=== PATIENT | male | born 1970 | race Caucasian/White ===

== ENCOUNTER 2017-01-14 18:36 | Emergency (ER) | payer SELFPAY ==
[2017-01-14] MEDS ORDERED: NS 0.9% 1000 ML* 1,000 ML IV ONE (19:53)
[2017-01-14] MEDS ORDERED: Ketorolac INJ* 30 MG/ML 1 ML VIAL IV PUSH ONE (19:54)
[2017-01-14 20:32] LABS: Hematocrit 38 % (42-52); Hemoglobin 13.1 g/dl (14.0-18.0); Mean Corpuscular HGB Conc 34 g/dl (31-36); Mean Corpuscular Hemoglobin 30 pg (27-31); Mean Corpuscular Volume 89 fL (80-94); Mean Platelet Volume 8 um3 (7.4-10.4); Red Blood Count 4.34 10^6/ul (4.0-5.4); Red Cell Distribution Width 14 % (10.5-15); White Blood Count 6.9 10^3/ul (3.5-10.8)
--- NOTE | 2017-01-14 20:40 | ED ---
Indira Mckeon Rebecca, scribed for Pedro Glover MD on 01/14/17 at 1930 . Lower Extremity - HPI Summary HPI Summary: Pt is a 46 y/o M who presents to ED c/o sores and pain on the R foot. Sx have been present for 1 week, worsening last night when the skin started to peel off. Has been packing the sores with Neosporin. Associated pain is currently moderate, ranked 7/10. Sx aggravated by walking and moving the great toe, alleviated by nothing. PMHx IDDM. Pt reports he just moved to the area approximately 1 month ago and has been more stressed than unusual while not being as diligent about checking his BG. Lats BG taken was 289 this morning. Allergies to Bactrim, Tylenol and Penicillin. - History of Current Complaint Chief Complaint: EDExtremityLower Stated Complaint: SORES ON RT FOOT Time Seen by Provider: 01/14/17 19:24 Hx Obtained From: Patient Onset of Pain: Days - 1 week, Prior to Arrival Onset/Duration: Still Present - 1 week Severity Currently: Moderate Pain Intensity: 7 Pain Scale Used: 0-10 Numeric Location: Is Discrete @ - R foot Associated Signs And Symptoms: Positive: Other - Sores Aggravating Factor(s): Ambulation, Other - Moving the R great toe Alleviating Factor(s): Nothing - Allergies/Home Medications Allergies/Adverse Reactions: Allergies Allergy/AdvReac Type Severity Reaction Status Date / Time Acetaminophen Allergy Severe Swelling Verified 01/14/17 18:47 Penicillins [PCN] Allergy Severe Anaphylatic Verified 01/14/17 18:47 Shock Shellfish Allergy Allergy Severe Anaphylatic Verified 01/14/17 18:47 Shock Sulfamethoxazole Allergy Severe Itching Verified 01/14/17 18:47 w/Trimethoprim [From Bactrim] Ketorolac Tromethamine Allergy Itching Verified 01/14/17 20:48 [From Toradol] PMH/Surg Hx/FS Hx/Imm Hx Endocrine/Hematology History: Reports: Hx Diabetes Cardiovascular History: Reports: Hx Hypertension Respiratory History: Reports: Hx Asthma Psychiatric History: Reports: Hx Bipolar Disorder Infectious Disease History: No Infectious Disease History: Denies: Traveled Outside the [place] in Last 30 Days - Family History Known Family History: Positive: Hypertension - Social History Occupation: Employed Full-time Alcohol Use: None Substance Use Type: Reports: None Smoking Status (MU): Current Every Day Smoker Review of Systems Negative: Fever Positive: Arthralgia - R foot pain with sores All Other Systems Reviewed And Are Negative: Yes Physical Exam Triage Information Reviewed: Yes Vital Signs On Initial Exam: Initial Vitals Temp Pulse Resp BP Pulse Ox 97.2 F 84 16 149/72 97 01/14/17 18:41 01/14/17 18:41 01/14/17 18:41 01/14/17 18:41 01/14/17 18:41 Vital Signs Reviewed: Yes Appearance: Positive: Well-Appearing, No Pain Distress Skin: Positive: Warm, Other - rt foot with cracked skin Head/Face: Positive: Normal Head/Face Inspection Eyes: Positive: PEREZ ENT: Positive: Hearing grossly normal Neck: Positive: Supple Respiratory/Lung Sounds: Positive: Breath Sounds Present Cardiovascular: Positive: RRR Abdomen Description: Positive: Nontender, Soft Bowel Sounds: Positive: Present Musculoskeletal: Positive: Strength/ROM Intact Neurological: Positive: Alert, Oriented to Person Place, Time Psychiatric: Positive: Affect/Mood Appropriate Diagnostics - Vital Signs Vital Signs Temp Pulse Resp BP Pulse Ox 01/14/17 18:41 97.2 F 84 16 149/72 97 - Laboratory Result Diagrams: 01/14/17 20:20 01/14/17 20:20 Lab Statement: Any lab studies that have been ordered have been reviewed, and results considered in the medical decision making process. Re-Evaluation - Re-Evaluation First Eval Re-Evaluation Time: 21:49 Change: Improved Comment: Discussed D/C plan with the pt. Lower Extremity Course/Dx - Course Assessment/Plan: Pt is a 46 y/o M who presents to ED c/o sores and pain on the R foot. Sx have been present for 1 week, worsening last night when the skin started to peel off. Has been packing the sores with Neosporin. Associated pain is currently moderate, ranked 7/10. Sx aggravated by walking and moving the great toe, alleviated by nothing. PMHx IDDM. Pt reports he just moved to the area approximately 1 month ago and has been more stressed than unusual while not being as diligent about checking his BG. Lats BG taken was 289 this morning. Allergies to Bactrim, Tylenol and Penicillin. Blood work and UA were done. In the ED course, pt was administered Toradol, Benadryl, Ultram and fluids which improved sx. He will be D/C to home with Dx of Diabetes and diabetic foot pain with a follow up with his PCP. He understands and agrees. Elevated BP noted and advised to f/u with PCP. - Diagnoses Provider Diagnoses: Diabetes, Diabetic foot pain Discharge - Discharge Plan Condition: Stable Disposition: HOME Patient Education Materials: [facility] (ED) Forms: *Work Release Referrals: Non Staff,Doctor [Primary Care Provider] - 3 Days The documentation as recorded by the Indira bashir Rebecca accurately reflects the service I personally performed and the decisions made by me, Pedro Glover MD.
[2017-01-14] MEDS ORDERED: diPHENhydraMINE IV* 50 MG/ML 1 ml VIAL (BENADRYL) IV ONE (20:41)
[2017-01-14 20:47] LABS: Albumin 3.9 g/dL (3.2-5.2); BUN/Creatinine Ratio 25.5 (8-20); Calcium 9.6 mg/dL (8.6-10.3); EGFR African American 67.1 (>60); EGFR Non-African American 52.2 (>60); Globulin 3.1 g/dL (2-4); Magnesium 2.2 mg/dL (1.9-2.7); Potassium 3.7 mmol/L (3.5-5.0); Total Bilirubin 0.4 mg/dL (0.2-1.0)
[2017-01-14] MEDS ORDERED: traMADol TAB* 50 MG PO ONE (21:14)
[2017-01-14 21:35] LABS: Urine Bacteria Absent (Absent); Urine Bilirubin Negative (Negative); Urine Glucose 3+(>=500 mg/dL) (Negative); Urine Nitrite Negative (Negative)
[2017-01-14 21:56] VITALS: BP 136/69
== END 2017-01-14 22:11 | disposition home or self-care (01) ==
LOC: ED 18:36
DX: E11.621 Type 2 diabetes mellitus with foot ulcer (principal); L97.519 Non-pressure chronic ulcer of other part of right foot with unspecified severity; E11.69 Type 2 diabetes mellitus with other specified complication; M79.671 Pain in right foot; Z79.4 Long term (current) use of insulin; I10 Essential (primary) hypertension; F31.9 Bipolar disorder, unspecified; J45.909 Unspecified asthma, uncomplicated; F17.200 Nicotine dependence, unspecified, uncomplicated; Z88.0 Allergy status to penicillin
CPT/HCPCS: 36415; 80053; 81003; 81015; 83605; 83735; 85025; 96360; 96374; 96375; 99283; A9270-GY; J1200; J1885

== ENCOUNTER 2017-09-30 16:48 | Emergency (ER) | payer OTHER ==
[2017-09-30] MEDS ORDERED: Ondansetron INJ* 2 MG/ML VIAL IV ONE (17:58)
[2017-09-30] MEDS ORDERED: NS 0.9% 1000 ML* 1,000 ML IV ONE (17:58)
[2017-09-30 18:05] LABS: ABS Basophils 0.1 10^3/ul (0-0.2); ABS Eosinophils 0.6 10^3/ul (0-0.6); ABS Lymphocytes 2.4 10^3/ul (1.0-4.8); ABS Monocytes 0.4 10^3/ul (0-0.8); ABS Neutrophils 5.8 10^3/ul (1.5-7.7); ABS Nucleated RBC 0 10^3/ul; Eosinophil % 6.8 % (0-6); Hematocrit 37 % (42-52); Hemoglobin 12.7 g/dl (14.0-18.0); Lymphocyte % 25.4 % (25-47); Mean Corpuscular HGB Conc 35 g/dl (31-36); Mean Corpuscular Hemoglobin 30 pg (27-31); Mean Corpuscular Volume 87 fL (80-94); Mean Platelet Volume 8.2 um3 (7.4-10.4); Nucleated Red Blood Cells % 0.1; Platelet Count 218 10^3/ul (150-450); Red Blood Count 4.22 10^6/ul (4.0-5.4); Red Cell Distribution Width 14 % (10.5-15); White Blood Count 9.3 10^3/ul (3.5-10.8)
[2017-09-30 18:09] LABS: Urine Appearance Clear; Urine Blood Negative (Negative); Urine Color Yellow; Urine Ketones Negative (Negative); Urine Protein 1+(30 mg/dL) (Negative); Urine Specific Gravity 1.014 (1.010-1.030); Urine Urobilinogen Negative (Negative)
--- NOTE | 2017-09-30 18:09 | ED ---
Nausea/Vomiting/Diarrhea HPI - HPI Summary HPI Summary: C/O NAUSEA AND VOMITING 2-3X/DAY SINCE 09/15/17, ELEVATED BGL (AROUND 400'S) X 1 WEEK, AND UMBILICAL PROTRUSION S/P MECHANICAL FALL 3 DAYS AGO. PT IS COMPLIANT WITH DM MEDS, LANTUS BID, HUMALOG SLIDING SCALE. PRIOR TO FALL DENIES SX OF FEVER, COUGH, SORE THROAT, CP, SOB, ABDOMINAL PAIN, CHNAGE IN URINE OR BM. POST FALL, C/O MILD DISCOMFORT AT SITE OF UMBILICAL PROTRUSION, WHICH PT HAS BEEN REDUCING WITH HIS FINGER. STATES PROTRUSION REOCCURS WITH COUGHING, BM. SNEEZING. PT SLIPPED CARRYING LAUNDRY DOWN THE STAIRS, LANDING ON TAILBONE, DENIES INCREASE IN CHRONIC LOW BACK PAIN, URINARY RETENTION, INCONTINENCE. HX OF DM, HTN, CHRONIC LOW BACK PAIN, BIPOLAR. SMOKER 1 PACK/DAY, DENIES ETOH, REC DRUGS. - History of Current Complaint Chief Complaint: EDDiabeticProb Stated Complaint: VOMITING,DIABETES ISSUE Time Seen by Provider: 09/30/17 17:27 Hx Obtained From: Patient Onset/Duration: Gradual Onset Timing: Intermittent Episodes Lasting: Severity Initially: Moderate Severity Currently: Mild Pain Intensity: 7 Pain Scale Used: 0-10 Numeric Location: Other Aggravating Factor(s): Movement Alleviating Factor(s): Other: Vomiting Characteristics: Nonbilious Diarrhea Presence: No - Allergies/Home Medications Allergies/Adverse Reactions: Allergies Allergy/AdvReac Type Severity Reaction Status Date / Time acetaminophen Allergy Swelling Verified 09/30/17 16:54 ketorolac [From Toradol] Allergy Itching Verified 09/30/17 16:54 Penicillins Allergy Anaphylatic Verified 09/30/17 16:54 Shock shellfish derived Allergy Anaphylatic Verified 09/30/17 16:54 Shock sulfamethoxazole Allergy Itching Verified 09/30/17 16:54 [From Bactrim] trimethoprim [From Bactrim] Allergy Itching Verified 09/30/17 16:54 Home Medications: Home Medications Albuterol Sulfate [Ventolin Hfa] 2 puff INH TID 09/30/17 [History Confirmed ] Atenolol TAB* [Tenormin TAB* 50 MG] 100 mg PO DAILY 09/30/17 [History Confirmed 09/30/17] Bumetanide TAB* [Bumex 2 MG TAB*] 4 mg PO DAILY 09/30/17 [History Confirmed ] Insulin GLARGINE(*) [Lantus(*)] 30 units SUBCUT Q12H 09/30/17 [History Confirmed 09/30/17] Insulin LISPRO* [HumaLOG*] 1 unit SQ TID 09/30/17 [History Confirmed 09/30/17] Lisdexamfetamine Dimesylate [Vyvanse] 50 mg PO DAILY 09/30/17 [History Confirmed 09/30/17] Lisinopril [Lisinopril] 40 mg PO DAILY 09/30/17 [History Confirmed 09/30/17] Simvastatin (NF) [Zocor (NF)] 40 mg PO DAILY 09/30/17 [History Confirmed ] lamoTRIgine TAB(*) [LaMICtal TAB(*)] 12.5 mg PO BEDTIME 09/30/17 [History Confirmed 09/30/17] oxyCODONE TAB* [Roxycodone TAB 5 mg*] 10 mg PO Q8H PRN 09/30/17 [History Confirmed 09/30/17] PMH/Surg Hx/FS Hx/Imm Hx Endocrine/Hematology History: Reports: Hx Diabetes Cardiovascular History: Reports: Hx Hypertension Respiratory History: Reports: Hx Asthma Psychiatric History: Reports: Hx Bipolar Disorder Infectious Disease History: No Infectious Disease History: Denies: Traveled Outside the [place] in Last 30 Days - Family History Known Family History: Positive: Hypertension - Social History Alcohol Use: None Substance Use Type: Reports: None Smoking Status (MU): Heavy Every Day Tobacco Smoker Review of Systems Constitutional: Negative Eyes: Negative ENT: Negative Cardiovascular: Negative Respiratory: Negative Positive: Vomiting, Nausea Genitourinary: Negative Musculoskeletal: Negative Skin: Negative Neurological: Negative Psychological: Normal All Other Systems Reviewed And Are Negative: Yes Physical Exam Triage Information Reviewed: Yes Vital Signs On Initial Exam: Initial Vitals Temp Pulse Resp BP Pulse Ox 97 F 81 18 140/82 99 09/30/17 16:55 09/30/17 16:55 09/30/17 16:55 09/30/17 16:55 09/30/17 16:55 Vital Signs Reviewed: Yes Appearance: Positive: Well-Appearing Skin: Positive: Warm Head/Face: Positive: Normal Head/Face Inspection Eyes: Positive: Normal Neck: Positive: Supple Respiratory/Lung Sounds: Positive: Clear to Auscultation Cardiovascular: Positive: Normal Abdomen Description: Positive: Nontender, Hernia @ - POSSIBLE HERNIA AT UMBLICUS Musculoskeletal: Positive: Normal Neurological: Positive: Normal Psychiatric: Positive: Normal AVPU Assessment: Alert - Joel Coma Scale Best Eye Response: 4 - Spontaneous Best Motor Response: 6 - Obeys Commands Best Verbal Response: 5 - Oriented Coma Scale Total: 15 Diagnostics - Vital Signs Vital Signs Temp Pulse Resp BP Pulse Ox 09/30/17 17:17 80 14 161/94 97 09/30/17 16:55 97 F 81 18 140/82 99 - Laboratory Lab Results: Lab Results 09/30/17 Range/Units 17:40 POC Glucose (mg/dL) 333 H (70-100) mg/dL Result Diagrams: 09/30/17 17:55 09/30/17 17:54 Lab Statement: Any lab studies that have been ordered have been reviewed, and results considered in the medical decision making process. Re-Evaluation - Re-Evaluation 1 Re-Evaluation Time: 19:33 Comment: Nausea controlled with Zofran. States headache started after IV access. Denied Tylenol or ibuprofen for headache. States he would prefer to go home and lie down Naus/Vom/Diarrhea Course/Dx - Course Course Of Treatment: N/V 2 weeks. Reducible soft nontender hernia. Fall onto lower back with no increase in chronic lower back pain, no urinary retention, and no difficulty ambulating. Vital signs unremarkable. Labs indicate no evidence of DKA. Creatinine near baseline. 1 L of fluids given. Nausea controlled with Zofran here in the ED. Follow-up for hernia with surgery. Follow-up for with primary care for hyperglycemia. - Differential Dx/Diagnosis Provider Diagnoses: Umbilical hernia. Nausea vomiting. Elevated blood sugar. Fall Discharge - Sign-Out/Discharge Documenting (check all that apply): Discharge/Admit/Transfer - Discharge Plan Condition: Stable Disposition: HOME Patient Education Materials: Diabetic Hyperglycemia (ED), Acute Nausea and Vomiting (ED) Referrals: Qi Gallagher NP [Primary Care Provider] - John Chu MD [Medical Doctor] - Additional Instructions: Follow-up with surgery Dr. Chu for umbilical hernia. Follow-up with primary care for management of hyperglycemia. - Billing Disposition and Condition Condition: STABLE Disposition: HOME
[2017-09-30] MEDS ORDERED: Ondansetron ODT TAB* 4 MG PO ONE ×2 (18:12→19:41)
[2017-09-30 18:23] LABS: EGFR Non-African American 45.9 (>60)
[2017-09-30] MEDS ORDERED: Ondansetron ODT TAB* 4 MG ONE (19:43)
[2017-09-30 19:57] VITALS: BP 158/96
== END 2017-09-30 19:55 | disposition home or self-care (01) ==
LOC: ED 16:48
DX: K42.9 Umbilical hernia without obstruction or gangrene (principal); R11.2 Nausea with vomiting, unspecified; E11.65 Type 2 diabetes mellitus with hyperglycemia; F17.200 Nicotine dependence, unspecified, uncomplicated; Z91.81 History of falling; Z79.4 Long term (current) use of insulin; Z88.5 Allergy status to narcotic agent; Z88.0 Allergy status to penicillin
CPT/HCPCS: 36415; 80053; 81003; 81015; 82803; 83605; 83690; 85025; 86140; 87086; 99283; A9270-GY

== ENCOUNTER 2018-01-04 06:55 | Day surgery (SDC) | payer OTHER ==
--- NOTE | 2018-01-01 15:03 | HP ---
PREOPERATIVE HISTORY AND PHYSICAL EXAM: DATE OF SURGERY/ADMISSION: 01/04/18 [facility] DATE OF OFFICE VISIT/ENCOUNTER: 12/19/17. ATTENDING SURGEON: Lisa Espinoza MD.* (DICTATED BY DIOMEDES OSORIO) PROCEDURE: Left wrist carpal tunnel release, ganglion cyst excision, cyst removed from left back. CHIEF COMPLAINT: Left hand numbness and tingling, mass on left wrist and cyst on left back. 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 He has had trouble for 4 months and his left hand bothers him especially when he is doing repetitive grasping. He does not have numbness all the time, it is intermittent. The mass on the left wrist has been present for a couple of months, is gradually grown in size and it is bothersome to him. He has had the lump present on his back for a couple of months as well and he would like to have this removed. He is consented to proceed with surgical intervention in the form of left wrist carpal tunnel release, ganglion cyst excision and cyst removal from the left back. PAST MEDICAL HISTORY: Positive for: 1. Type 1 insulin dependent diabetes. 2. Hypertension. 3. Asthma. 4. Anxiety. 5. Hypercholesterolemia. 6. ADD. 7. Bipolar disorder. PAST SURGICAL HISTORY: Lumbar fusion. CURRENT MEDICATIONS: 1. Adderall 20 mg twice daily. 2. Humalog KwikPen 100 units/mL 10 units 3 times a day. 3. Lantus 100 units/mL 30 units twice a day. 4. Lisinopril 40 mg daily. 5. Simvastatin 40 mg daily. 6. Topiramate 50 mg half tablet by mouth twice a day. ALLERGIES: BACTRIM, TORADOL, cause itching, swelling, and nausea. BACTRIM and IODINE cause hives. TYLENOL reaction unknown. FAMILY MEDICAL HISTORY: Family medical history is unknown. SOCIAL HISTORY: The patient is employed as a history faculty member at [employer]. He is a current smoker. He smokes a pack per day and has done so for over 12 years. He denies recreational drug use. He drinks alcohol on rare occasion. REVIEW OF SYSTEMS: General: Negative for fevers, chills, night sweats, unexplained weight loss/gain. No known anesthesia problems. HEENT: Negative for headache, lightheadedness, syncopal episode, visual changes. Integumentary : Negative for abrasions, lesions or open wounds. Cardiothoracic: Negative for hypertension, chest pain, palpitations, edema. Respiratory: Negative for shortness of breath with exertion, chronic cough, wheezing. GI: Negative for nausea, vomiting, diarrhea, constipation or GERD. : Negative for nocturia, urinary frequency, urgency, history of UTI or kidney problems. Musculoskeletal : Positive for current complaints. Negative for chronic or intermittent back pain or history of fractures. Neurological: Negative for history of seizure, stroke, poor balance. Endocrine: Positive for insulin dependent diabetes. Negative for thyroid issues. Hematologic: Negative for easy bruising, anemia or bleeding disorder, history of DVT. Infectious Disease: Negative for history of MRSA, hepatitis C, HIV. PHYSICAL EXAMINATION GENERAL: Well-developed, well-nourished, 47-year-old male in no acute distress. VITAL SIGNS: Height 6 feet 2 inches, weight 235 pounds, pulse rate 96, blood pressure 162/90. HEENT: Normocephalic, atraumatic. Pupils are equal, round, and reactive to light and accommodation. Extraocular movements are intact. Throat is clear. NECK: Supple. No palpable lymph nodes. CARDIOVASCULAR: Regular rate and rhythm. S1, S2. No murmurs, rubs or gallops. No edema. PULMONARY: Lungs are clear to auscultation bilaterally. No wheezes, rales or rhonchi. ABDOMEN: Positive bowel sounds. Soft, nontender. NEUROLOGICAL: Alert and oriented x3. Cranial nerves II through XII are intact. Sensation is intact to light touch. MUSCULOSKELETAL: On exam of his left wrist, he has a cystic mass on the dorsal aspect of the radiocarpal joint. It is tender to palpation. It limits his motion slightly in extension and flexion. The mass appears multiloculated and subcutaneous. On the exam of the left hand, he has normal sensation to light touch. Negative Tinel of the median nerve at the wrist but a positive Phalen test. There is no thenar wasting. There is a small amount of interosseous wasting. He can make a full fist and fully extend his fingers. On exam of his back, he has a small cystic mass on the left side of his back. It is tender to palpation. Skin is intact. DIAGNOSTIC STUDIES: X-rays of the left wrist appear normal. IMPRESSION: 1. Left carpal tunnel syndrome. 2. Left wrist ganglion. 3. Left back sebaceous cyst. PLAN: The patient is scheduled to undergo a left wrist carpal tunnel release. A ganglion cyst excision from the left wrist and cyst removal from the left back with Dr. Espinoza on 01/04/18. He will return to the office in 10 days postop for followup and suture removal. A prescription for tramadol was e- scribed to the patient's pharmacy for postoperative pain management. DIOMEDES OSORIO [id number]/CPS #: [id number] MTDD
[2018-01-04] MEDS ORDERED: Famotidine IV* 10 MG/ML 2 ML (20 mg) ONE ×2 (07:08→08:13)
[2018-01-04] MEDS ORDERED: Lidocaine 1% INJ* 10 MG/ML 30 ML SDV ONE ×2 (07:51→10:14)
[2018-01-04] MEDS ORDERED: fentaNYL* 50 MCG/ML 2 ML VIAL (100 MCG VIAL) ONE (08:21)
[2018-01-04] MEDS ORDERED: Midazolam* 1 MG/ML 5 ML VIAL (5 MG) ONE (08:22)
[2018-01-04] MEDS ORDERED: Naloxone* 0.4 MG/ML 1 ML VIAL IV PRN (08:30)
[2018-01-04] MEDS ORDERED: DiMENhydriNATE IV* 50 MG/ML VIAL IV PUSH PRN (08:30)
[2018-01-04] MEDS ORDERED: Insulin LISPRO* 1 UNITS UNIT SUBCUT PRN (08:31)
[2018-01-04] MEDS ORDERED: Dextrose 50% Syringe 50 ML* 25 GM/50 ML SYRINGE IV PUSH PRN (08:31)
[2018-01-04] MEDS ORDERED: Propofol* 10 MG/ML 20 ML BTL IV PUSH ONE (09:00)
[2018-01-04] MEDS ORDERED: Ondansetron INJ* 2 MG/ML VIAL ONE (09:00)
[2018-01-04] MEDS ORDERED: Lidocaine 2% PF * 5 ML VIAL ONE (09:00)
[2018-01-04] MEDS ORDERED: Insulin LISPRO* 1 UNITS UNIT SUBCUT ONE (10:06)
[2018-01-04 10:24] VITALS: BP 140/80
--- NOTE | 2018-01-05 04:20 | OP ---
ADDENDUM NOW INCLUDED ON THIS REPORT DATE OF OPERATION: 01/04/18 - [facility] DATE OF : 68 SURGEON: Lisa Espinoza MD. ELECTRICAL WIRER: DIOMEDES Miranda. ANESTHESIA: Local MAC. PRE-OP DIAGNOSES: Left carpal tunnel syndrome, left wrist ganglion cyst, and a cyst on the left back. POST-OP DIAGNOSES: Left carpal tunnel syndrome, left wrist ganglion cyst, and a cyst on the left back. OPERATIVE PROCEDURE: Removal of a sebaceous cyst on the back, removal of the ganglion cyst in the left wrist, and left carpal tunnel release. ESTIMATED BLOOD LOSS: Zero. TOURNIQUET TIME: Approximately 15 minutes on the left arm. INDICATIONS FOR PROCEDURE: The patient is a 47-year-old male who complains of numbness and tingling in the medial nerve distribution of his left hand as well as a mass on the dorsal aspect of his left wrist and a mass on his back. He presents for removal of the 2 masses and carpal tunnel release. DESCRIPTION OF PROCEDURE: The patient was brought to the operating room, was given a sedation anesthetic and local infiltration of 10 cc of 1% plain lidocaine overlying the mass on his back and 10 cc of 1% plain lidocaine overlying the ganglion cyst on his left wrist, and 12 cc of 1% plain lidocaine in the palm of the left hand. He was placed in the right lateral decubitus position and the skin of his back was prepped with ChloraPrep and draped in the usual sterile fashion. A longitudinal incision was made centered over the mass , appeared to be a sebaceous cyst. It was carefully pulled out with its capsule and sent to Pathology. The wound was irrigated and skin edges were reapproximated with 4-0 nylon suture. The wound was dressed with Xeroform, 4x4 , and tape. Next, the patient was placed supine and tourniquet was placed around his left arm. The skin of the left hand and forearm was prepped and draped in the usual sterile fashion. The hand and forearm were exsanguinated and the tourniquet elevated to 250 mmHg. A transverse incision was made centered over the mass and dissected bluntly through the subcutaneous tissue. The mass appeared to be a ganglion cyst emanating from the second and third extensor compartment sheath. It was dissected away from the EPI, and EPL and EPLB tendons and there was abundant tenosynovitis surrounding the wrist extensor tendons and this was debrided as well. The edge of the extensor retinaculum was cauterized with the Bovie and the wound was irrigated and the skin edges were reapproximated with 4- 0 nylon suture. Next, a longitudinal incision was made in the palm in line with the ring finger. We dissected through the subcutaneous tissue sharply with a knife and then down to the transverse carpal ligament. The ligament was incised sharply with a knife, and then more proximally with the scissors. The nerve was dissected free from the surrounding tissue and at the mid portion of ligaments. The wound was irrigated and the skin edges reapproximated with 4-0 nylon suture. The wound was dressed with Xeroform, 4x4, Webril, and an Artie wrap. The patient tolerated the procedure well and was brought to the recovery room in good condition. ADDENDUM: DATE OF OPERATION: 01/04/18 There is a blank in the body of the note and it should read: The nerve was dissected free from the surrounding tissue, and there was a site of moderate compression at the mid portion of the ligament. [id number]/CPS #: [id number] A- [id number]/CPS #: [id number] RITCHIE
--- NOTE | 2018-01-08 17:08 | OP ---
CC: Dr. Espinoza OPERATIVE REPORT: ADDENDUM: DATE OF OPERATION: 01/04/18 There is a blank in the body of the note and it should read, The nerve was dissected free from the surrounding tissue and there was a site of moderate compression at the mid portion of the ligament. [id number]/CPS #: [id number] MTDD
== END 2018-01-04 10:40 | disposition home or self-care (01) ==
LOC: OREAST 06:55
PROVIDERS: ATTEND Orthopaedic Surgery
DX: M67.432 Ganglion, left wrist (principal); L72.0 Epidermal cyst; G56.02 Carpal tunnel syndrome, left upper limb; E10.9 Type 1 diabetes mellitus without complications; Z79.4 Long term (current) use of insulin; J45.909 Unspecified asthma, uncomplicated; I10 Essential (primary) hypertension; F41.9 Anxiety disorder, unspecified; E78.00 Pure hypercholesterolemia, unspecified; F98.8 Other specified behavioral and emotional disorders with onset usually occurring in childhood and adolescence; F31.9 Bipolar disorder, unspecified
CPT/HCPCS: 88304; J2250; J2405; J2704; J3010

== ENCOUNTER 2018-02-26 06:56 | Day surgery (SDC) | payer OTHER ==
--- NOTE | 2018-02-15 08:08 | HP ---
PREOPERATIVE HISTORY AND PHYSICAL: DATE OF ADMISSION/SURGERY: 02/26/18 DATE OF OFFICE VISIT/ENCOUNTER: 02/13/18 ATTENDING SURGEON: Lisa Espinoza MD * (DICTATED BY DIOMEDES OSORIO) PROCEDURE: Right index, long, ring finger, trigger finger releases. CHIEF COMPLAINT: Triggering of right index, long, and ring fingers. HISTORY OF PRESENT ILLNESS: This is a 47-year-old male who has had ongoing problems with triggering of the right index, long, and ring fingers. These have been bothersome for several months. He recently had surgery on his other hand, left carpal tunnel release and a cyst excision and he was waiting for that to heal before he proceeded with surgical intervention for his right hand. PAST MEDICAL HISTORY: 1. Type 1 insulin dependent diabetes. 2. Hypertension. 3. Asthma. 4. Anxiety. 5. Hypercholesterolemia. 6. ADD. 7. Bipolar disorder. PAST SURGICAL HISTORY: 1. Lumbar fusion. 2. Left wrist carpal tunnel release. 3. Cyst excision from left wrist. 4. Cyst excision from back. CURRENT MEDICATIONS: 1. Adderall 20 mg twice a day. 2. Humalog KwikPen 100 units/mL 10 units 3 times a day. 3. Ibuprofen 800 mg 1 tablet q.8 hours p.r.n. 4. Lantus 100 units/mL 30 units twice a day. 5. Lisinopril 40 mg daily. 6. Simvastatin 40 mg daily. 7. Topiramate 50 mg half tab twice daily. 8. Lamictal 32.5 mg daily. ALLERGIES: BACTRIM and TORADOL cause itching, swelling, and nausea. BACTRIM and IODINE cause hives. TYLENOL reaction unknown. FAMILY HISTORY: Unknown. 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 He is a current smoker, he smokes a pack a day and has done so for the past 12 years. He is in the process of trying to quit. He denies recreational drug use. He drinks alcohol on rare occasion. REVIEW OF SYSTEMS: Negative for general, cephalic, cardiovascular, respiratory , GI, , other musculoskeletal, integumentary, endocrine, neurologic, and hematologic symptoms. Infectious Disease: Negative for MRSA, hepatitis C, and HIV. PHYSICAL EXAMINATION GENERAL: Well-developed, well-nourished 47-year-old male, in no acute distress. VITAL SIGNS: Height 6 feet 2 inches, weight 231 pounds. Pulse rate 78, blood pressure 160/84. HEENT: Normocephalic, atraumatic. Pupils are equal, round, and reactive to light and accommodation. Extraocular movements are intact. Throat is clear. NECK: Supple. No palpable lymph nodes. PULMONARY: Lungs are clear to auscultation bilaterally. No wheezes, rales, or rhonchi. CARDIOVASCULAR: Regular rate and rhythm. S1, S2. No murmurs, rubs, or gallops. No edema. ABDOMEN: Positive bowel sounds. Soft, nontender. NEUROLOGICAL: Alert and oriented x3. Cranial nerves II through XII are intact. Sensation is intact to light touch. MUSCULOSKELETAL: On exam of the right hand, he has no visible swelling. There is tenderness to palpation at the A1 pulleys of the index, long and ring fingers. He can make a full fist, but feels tightness when he tries to squeeze tightly. He has good extension of the fingers. Neurovascular function is intact. IMPRESSION: Right index, long and ring finger trigger fingers. PLAN: The patient is scheduled to undergo right index, long, ring finger trigger finger release with Dr. Espinoza on . He will return to the office 10 days postop for followup and suture removal. A prescription for oxycodone 5 mg was e- scribed to the patient's pharmacy for postoperative pain management. DIOMEDES OSORIO [id number]/[facility] #: [id number] RITCHIE
[~2018-02-26 06:56] MED LIST: Buffered Lidocaine 0.9% SYRIN* 5 ML/SYR SYRINGE INTRADERM ONE
[2018-02-26] MEDS ORDERED: Lidocaine 1% INJ* 10 MG/ML 30 ML SDV ONE (07:14)
[2018-02-26] MEDS ORDERED: Midazolam* 1 MG/ML 2 ML VIAL (2 MG) ONE (08:20)
[2018-02-26] MEDS ORDERED: fentaNYL* 50 MCG/ML 2 ML VIAL (100 MCG VIAL) ONE (08:20)
[2018-02-26] MEDS ORDERED: Propofol* 10 MG/ML 20 ML BTL IV PUSH ONE ×2 (08:21→08:33)
[2018-02-26] MEDS ORDERED: Naloxone* 0.4 MG/ML 1 ML VIAL IV PRN (08:52)
[2018-02-26] MEDS ORDERED: Ketorolac INJ* 30 MG/ML 1 ML VIAL ONE (08:54)
[2018-02-26 09:34] VITALS: BP 153/81
--- NOTE | 2018-02-27 02:45 | OP ---
DATE OF OPERATION: 02/26/18 [facility] DATE OF : 68 SURGEON: Lisa Espinoza MD MORTAR WORKER: DIOMEDES Miranda ANESTHESIA: Local MAC. PRE-OP DIAGNOSIS: Trigger fingers right index, long, and ring. POST-OP DIAGNOSIS: Trigger fingers right index, long, and ring. OPERATIVE PROCEDURE: Trigger release right index, long, and ring. ESTIMATED BLOOD LOSS: Zero. TOURNIQUET TIME: About 10 minutes. INDICATIONS FOR PROCEDURE: Aaron is a 47-year-old male with triggering and locking of his right index, middle, and ring fingers. He is a diabetic. He has failed conservative treatment and presents for trigger finger release of his right index, long, and ring fingers. DESCRIPTION OF PROCEDURE: The patient was brought to the operating room, was given a sedation anesthetic and a local infiltration of 10 cc of 1% plain lidocaine in the palm of his right hand. The skin of his right hand and forearm was prepped and draped in the usual sterile fashion. The hand and forearm were exsanguinated and the tourniquet elevated to 250 mmHg. A transverse incision was made centered over the A1 pulleys of the right index, long, and ring fingers. We dissected bluntly through the subcutaneous tissue down to the A1 pulleys. The digital neurovascular bundles were retracted by the manager surgical Aixa Almeida. Each of these 3 A1 pulleys was incised longitudinally completely releasing the tendons. There was abundant tenosynovitis surrounding the index finger tendons, and this was debrided and sent for pathology. The tendons were otherwise in good condition. The wound was irrigated and the skin edges reapproximated with 4-0 nylon suture. The wound was dressed with Xeroform, 4 x 4, Webril, and an Artie wrap. The patient tolerated the procedure well and was brought to the recovery room in good condition. [id number]/[facility] #: [id number] [facility]ITALProsper
== END 2018-02-26 09:28 | disposition home or self-care (01) ==
LOC: OREAST 06:56
PROVIDERS: ATTEND Orthopaedic Surgery
DX: M65.321 Trigger finger, right index finger (principal); M65.331 Trigger finger, right middle finger; M65.341 Trigger finger, right ring finger; I10 Essential (primary) hypertension; J45.909 Unspecified asthma, uncomplicated; F41.9 Anxiety disorder, unspecified; E78.00 Pure hypercholesterolemia, unspecified; E10.9 Type 1 diabetes mellitus without complications; Z79.4 Long term (current) use of insulin; F17.210 Nicotine dependence, cigarettes, uncomplicated; Z88.8 Allergy status to other drugs, medicaments and biological substances
CPT/HCPCS: 88304; J1885; J2250; J2704; J3010

== ENCOUNTER 2023-05-08 20:27 | Inpatient (IN) ==
[2023-05-08 20:52] LABS: ABS Basophils 0.1 10^3/uL (0.0-0.1); ABS Eosinophils 0.2 10^3/uL (0.0-0.5); ABS Lymphocytes 2.7 10^3/uL (1.0-4.8); ABS Monocytes 0.9 10^3/uL (0.0-1.1); ABS Neutrophils 7.9 10^3/uL (1.5-7.6); ABS Nucleated RBC 0.01 10^3/ul; Eosinophil % 1.3 %; Hematocrit 38.1 % (38-53); Hemoglobin 12.7 g/dL (13.2-16.3); Lymphocyte % 22.7 %; Mean Corpuscular Hemoglobin 28.5 pg (27-33); Mean Corpuscular Hgb Conc 33.4 g/dL (31-36); Mean Corpuscular Volume 85.4 fL (80-97); Mean Platelet Volume 8.3 fL (7.5-11.2); Nucleated Red Blood Cells % 0.1 %/100WBC (0.0-0.8); Platelet Count 261 10^3/uL (150-450); Red Blood Count 4.46 10^6/uL (4.06-5.63); Red Cell Distribution Width 13.5 % (12-17); White Blood Count 11.8 10^3/uL (3.6-10.2)
[2023-05-08 21:04] LABS: Activated Partial Thrombo Time 26.5 seconds (26.0-38.0); INR 0.89 (0.83-1.13)
[2023-05-08 21:13] LABS: Albumin 4.1 g/dL (3.2-5.2); Albumin/Globulin Ratio 1.3 (1-3); Calcium 9.4 mg/dL (8.6-10.3); Creatinine, Serum 3.6 mg/dL (0.67-1.17); Globulin 3.2 g/dL (2-4); Magnesium 2.6 mg/dL (1.9-2.7); Potassium 4.1 mmol/L (3.5-5.0); Total Bilirubin 0.4 mg/dL (0.2-1.0); Total Protein 7.3 g/dL (6.4-8.9); eGFR CKD-EPI 19.3 (>60)
[2023-05-08] MEDS ORDERED: Ondansetron 4 mg VIAL 2 MG/ML 2 ml VIAL IV ONE ×2 (21:13→22:39)
[2023-05-08] MEDS ORDERED: NS 0.9% 500 ml BAG 500 ML IV ONE (21:21)
[2023-05-08] MEDS ORDERED: NORMOSOL-R pH 7.4 1000 mL BAG 1,000 ML IV ONE (22:20)
[2023-05-08] MEDS ORDERED: Dextrose 50% Syringe 50 ml 25 GM/50 ML SYRINGE IV PUSH PRN (22:20)
[2023-05-08 22:31] LABS: High Sensitivity Troponin 1 Hr 384 pg/mL (<20)
[2023-05-08] MEDS ORDERED: Metoclopramide 5 MG/ML VIAL (10 mg) IV SLOW PU ONE (22:56)
[2023-05-08] MEDS ORDERED: Heparin 5000 UNITS/ML 1 mL VIAL IV SCH (23:00)
[2023-05-08] MEDS: Heparin DRIP 25,000 UNITS BAG 25,000 UNITS/250 ML BAG IV SCH (23:01)
[2023-05-08] MEDS ORDERED: NORMOSOL-R pH 7.4 1000 mL BAG 1,000 ML IV SCH (23:45)
[2023-05-08] MEDS: Insulin Infusion 100unit/100mL 100 UNIT/100 ML BAG IV SCH (23:59)
[2023-05-09] MEDS ORDERED: Metoclopramide 5 MG/ML VIAL (10 mg) IV SLOW PU ONE (00:13)
[2023-05-09] MEDS ORDERED: Lactated Ringers 1000 ml BAG 1,000 ML IV ONE (00:39)
[2023-05-09] MEDS ORDERED: Lactated Ringers 1000 ml BAG 1,000 ML IV SCH (01:00)
[2023-05-09 01:27] LABS: Creatinine, Serum 3.74 mg/dL (0.67-1.17); Potassium 4.5 mmol/L (3.5-5.0); eGFR CKD-EPI 18.5 (>60)
[2023-05-09 02:07] LABS: Glucose Confirmatory 485 mg/dL (70-100)
[2023-05-09 02:20] LABS: Urine Appearance Cloudy; Urine Bilirubin Negative (Negative); Urine Blood 1+ (Negative); Urine Color Yellow; Urine Glucose 3+(>=500 mg/dL) (Negative); Urine Ketones 2+ (Negative); Urine Nitrite Negative (Negative); Urine Protein 2+(100 mg/dL) (Negative); Urine Specific Gravity 1.018 (1.002-1.030); Urine Urobilinogen Negative (Negative)
[2023-05-09 02:26] LABS: Urine Benzodiazepine Screen None Detected (None Detect); Urine Cannabinoids Screen None Detected (None Detect); Urine Opiates Screen None Detected (None Detect)
[2023-05-09 02:30] LABS: Urine Bacteria Absent (Absent); Urine Red Blood Cell Trace(0-2/hpf) (Absent); Urine Squamous Epithelial Cell Present (Absent); Urine White Blood Cell Absent (Absent)
[2023-05-09 04:57] LABS: ABS Lymphocytes 2.1 10^3/uL (1.0-4.8); ABS Monocytes 1.1 10^3/uL (0.0-1.1); ABS Neutrophils 10.9 10^3/uL (1.5-7.6); Hematocrit 33.1 % (38-53); Hemoglobin 10.9 g/dL (13.2-16.3); Lymphocyte % 15.1 %; Mean Corpuscular Hemoglobin 28.4 pg (27-33); Mean Corpuscular Hgb Conc 33.1 g/dL (31-36); Mean Corpuscular Volume 85.9 fL (80-97); Mean Platelet Volume 8.3 fL (7.5-11.2); Platelet Count 227 10^3/uL (150-450); Red Blood Count 3.86 10^6/uL (4.06-5.63); Red Cell Distribution Width 13.4 % (12-17); White Blood Count 14.1 10^3/uL (3.6-10.2)
[2023-05-09 05:10] LABS: Calcium 8.1 mg/dL (8.6-10.3); Creatinine, Serum 3.4 mg/dL (0.67-1.17); Magnesium 2.2 mg/dL (1.9-2.7); Phosphorus 2.4 mg/dL (2.5-5.0); Potassium 3.2 mmol/L (3.5-5.0); eGFR CKD-EPI 20.7 (>60)
[2023-05-09] MEDS ORDERED: Potassium Phosphate IV 15 MMOL in NS 0.9% 250 ml 250 ML IVPB ONE (05:18)
[2023-05-09] MEDS ORDERED: fentaNYL 100 mcg/2 ml 50 MCG/ML VIAL IV SLOW PU PRN (05:19)
[2023-05-09] MEDS ORDERED: Benzocaine/Menthol LOZ MT PRN (06:31)
[2023-05-09] MEDS: HYDROmorphone 1 MG/1 ML SYRINGE IV SLOW PU PRN ×7 (06:32→21:08)
[2023-05-09] MEDS ORDERED: D5W 1000 ml BAG 1,000 ML IV SCH (08:00)
[2023-05-09] MEDS ORDERED: KCL 20 MEQ/100 ML IVPREMIX 20 MEQ/100 ML BAG IV ONE (08:44)
[2023-05-09] MEDS ORDERED: Magnesium Sulfate 2 gm BAG 2 GM/50 ML BAG IVPB ONE (08:50)
[2023-05-09] MEDS ORDERED: D10W 1000 ml BAG 1,000 ML IV SCH (09:00)
[2023-05-09 09:20] LABS: Calcium 8.8 mg/dL (8.6-10.3); Creatinine, Serum 3.49 mg/dL (0.67-1.17); Magnesium 2.3 mg/dL (1.9-2.7); Phosphorus 3.6 mg/dL (2.5-5.0); Potassium 3.8 mmol/L (3.5-5.0); eGFR CKD-EPI 20.1 (>60)
[2023-05-09] MEDS: Ondansetron 4 mg VIAL 2 MG/ML 2 ml VIAL IV PRN ×2 (09:47→21:09)
[2023-05-09] MEDS: D10W 1000 ml BAG 1,000 ML IV SCH (09:48)
[2023-05-09] MEDS: Metoclopramide 5 MG/ML VIAL (10 mg) IV PRN ×2 (10:27→16:01)
[2023-05-09 10:53] LABS: Glucose Confirmatory 489 mg/dL (70-100)
[2023-05-09] MEDS: LACTATED RINGERS IV SCH ×2 (10:55→18:37)
[2023-05-09] MEDS: POTASSIUM CHLORIDE IV SCH ×2 (10:55→18:37)
[2023-05-09] MEDS: Insulin Infusion 100unit/100mL 100 UNIT/100 ML BAG IV SCH ×2 (11:50→21:42)
[2023-05-09 12:13] LABS: Glucose Confirmatory 480 mg/dL (70-100)
[2023-05-09 13:07] LABS: Calcium 8.4 mg/dL (8.6-10.3); Creatinine, Serum 3.64 mg/dL (0.67-1.17); Magnesium 2.7 mg/dL (1.9-2.7); Phosphorus 3.8 mg/dL (2.5-5.0); Potassium 3.8 mmol/L (3.5-5.0); eGFR CKD-EPI 19.1 (>60)
[2023-05-09] MEDS: Heparin DRIP 25,000 UNITS BAG 25,000 UNITS/250 ML BAG IV SCH (15:32)
[2023-05-09 17:03] LABS: Calcium 8.7 mg/dL (8.6-10.3); Creatinine, Serum 3.44 mg/dL (0.67-1.17); Magnesium 2.6 mg/dL (1.9-2.7); Phosphorus 2.1 mg/dL (2.5-5.0); Potassium 3.5 mmol/L (3.5-5.0); eGFR CKD-EPI 20.4 (>60)
[2023-05-09 20:29] LABS: Calcium 8.4 mg/dL (8.6-10.3); Creatinine, Serum 3.38 mg/dL (0.67-1.17); Magnesium 2.4 mg/dL (1.9-2.7); Phosphorus 2.2 mg/dL (2.5-5.0); Potassium 3.5 mmol/L (3.5-5.0); eGFR CKD-EPI 20.9 (>60)
[2023-05-09] MEDS: Pantoprazole VIAL 40 MG VIAL IV SCH (21:07)
[2023-05-10] MEDS: HYDROmorphone 1 MG/1 ML SYRINGE IV SLOW PU PRN ×6 (00:19→22:15)
[2023-05-10] MEDS: POTASSIUM CHLORIDE IV SCH (01:21)
[2023-05-10] MEDS: LACTATED RINGERS IV SCH (01:21)
[2023-05-10 02:14] LABS: Calcium 8.5 mg/dL (8.6-10.3); Creatinine, Serum 3.11 mg/dL (0.67-1.17); Magnesium 2.3 mg/dL (1.9-2.7); Phosphorus 2.2 mg/dL (2.5-5.0); Potassium 3.5 mmol/L (3.5-5.0); eGFR CKD-EPI 23.1 (>60)
[2023-05-10] MEDS ORDERED: Insulin GLARGINE 100 un/ml 10 ml VIAL SUBCUT ONE (02:32)
[2023-05-10] MEDS: D10W 1000 ml BAG 1,000 ML IV SCH (04:37)
[2023-05-10 06:44] LABS: Albumin 3.2 g/dL (3.2-5.2); Albumin/Globulin Ratio 1.4 (1-3); Calcium 8.5 mg/dL (8.6-10.3); Creatinine, Serum 3.05 mg/dL (0.67-1.17); Globulin 2.3 g/dL (2-4); Magnesium 2.2 mg/dL (1.9-2.7); Phosphorus 3.3 mg/dL (2.5-5.0); Total Bilirubin 0.3 mg/dL (0.2-1.0); Total Protein 5.5 g/dL (6.4-8.9); eGFR CKD-EPI 23.6 (>60)
[2023-05-10] MEDS: Pantoprazole VIAL 40 MG VIAL IV SCH (09:05)
[2023-05-10] MEDS: Albuterol HFA INHALER 8 gm MDI INH PRN ×2 (15:45→22:36)
[2023-05-10] MEDS ORDERED: Insulin GLARGINE 100 un/ml 10 ml VIAL SUBCUT SCH (21:00)
[2023-05-10] MEDS: Insulin GLARGINE 100 un/ml 10 ml VIAL SUBCUT SCH (22:15)
[2023-05-11] MEDS: HYDROmorphone 1 MG/1 ML SYRINGE IV SLOW PU PRN ×5 (01:37→15:16)
[2023-05-11] MEDS: Ondansetron 4 mg VIAL 2 MG/ML 2 ml VIAL IV PRN (06:51)
[2023-05-11] MEDS: Albuterol HFA INHALER 8 gm MDI INH PRN ×3 (06:52→19:41)
[2023-05-11 07:02] LABS: ABS Eosinophils 0.3 10^3/uL (0.0-0.5); ABS Lymphocytes 2.3 10^3/uL (1.0-4.8); ABS Monocytes 0.5 10^3/uL (0.0-1.1); ABS Neutrophils 2.5 10^3/uL (1.5-7.6); Eosinophil % 5.7 %; Hematocrit 25.6 % (38-53); Hemoglobin 8.8 g/dL (13.2-16.3); Lymphocyte % 40.6 %; Mean Corpuscular Hemoglobin 28.8 pg (27-33); Mean Corpuscular Hgb Conc 34.3 g/dL (31-36); Mean Corpuscular Volume 84.1 fL (80-97); Platelet Count 183 10^3/uL (150-450); Red Blood Count 3.04 10^6/uL (4.06-5.63); Red Cell Distribution Width 13.5 % (12-17); White Blood Count 5.6 10^3/uL (3.6-10.2)
[2023-05-11 07:24] LABS: Calcium 8.4 mg/dL (8.6-10.3); Creatinine, Serum 2.48 mg/dL (0.67-1.17); Potassium 3.6 mmol/L (3.5-5.0); eGFR CKD-EPI 30.3 (>60)
[2023-05-11] MEDS: Aspirin EC 81 mg TAB.EC (enteric coated) PO SCH (08:48)
[2023-05-11] MEDS: Metoclopramide 5 MG/ML VIAL (10 mg) IV PRN (08:49)
[2023-05-11] MEDS: Pantoprazole VIAL 40 MG VIAL IV SCH (08:51)
[2023-05-11] MEDS ORDERED: Amphetamine MIXED SALT 10mgTAB PO SCH ×2 (09:00→16:00)
[2023-05-11] MEDS ORDERED: Senna TAB 8.6 mg TAB PO PRN (11:25)
[2023-05-11] MEDS ORDERED: Magnesium Hydroxide LIQ 30 ML UDC PO PRN (11:25)
[2023-05-11] MEDS ORDERED: HYDROmorphone 1 MG/1 ML SYRINGE IV SLOW PU PRN (16:45)
[2023-05-11 20:00] LABS: High Sensitivity Troponin 1 Hr 340 pg/mL (<20)
[2023-05-11] MEDS: Insulin GLARGINE 100 un/ml 10 ml VIAL SUBCUT SCH (21:34)
[2023-05-12] MEDS: HYDROmorphone 0.5 MG/0.5 ML SYRINGE IV SLOW PU PRN ×4 (02:57→17:38)
[2023-05-12 06:51] LABS: Calcium 8.3 mg/dL (8.6-10.3); Creatinine, Serum 2.15 mg/dL (0.67-1.17); eGFR CKD-EPI 35.9 (>60)
[2023-05-12 07:09] LABS: ABS Eosinophils 0.3 10^3/uL (0.0-0.5); ABS Monocytes 0.4 10^3/uL (0.0-1.1); ABS Neutrophils 2.5 10^3/uL (1.5-7.6); ABS Nucleated RBC 0.01 10^3/ul; Eosinophil % 4.8 %; Hematocrit 22.4 % (38-53); Hemoglobin 7.5 g/dL (13.2-16.3); Lymphocyte % 47.8 %; Mean Corpuscular Hemoglobin 28.9 pg (27-33); Mean Corpuscular Hgb Conc 33.6 g/dL (31-36); Mean Corpuscular Volume 86.2 fL (80-97); Nucleated Red Blood Cells % 0.1 %/100WBC (0.0-0.8); Platelet Count 204 10^3/uL (150-450); Red Cell Distribution Width 13.6 % (12-17); White Blood Count 6.2 10^3/uL (3.6-10.2)
[2023-05-12] MEDS: Polyethylene Glycol 3350 17 GM PACKET PO PRN (08:50)
[2023-05-12] MEDS: Aspirin EC 81 mg TAB.EC (enteric coated) PO SCH (08:50)
[2023-05-12] MEDS: Metoclopramide 5 MG/ML VIAL (10 mg) IV PRN (08:53)
[2023-05-12] MEDS: Albuterol HFA INHALER 8 gm MDI INH PRN ×2 (10:22→21:03)
[2023-05-12 10:44] LABS: Phosphorus 2.9 mg/dL (2.5-5.0)
[2023-05-12 11:45] LABS: Ferritin 90.8 ng/mL (24-336)
[2023-05-12] MEDS ORDERED: Furosemide 40 mg/4 ml IV VIAL IV ONE (13:27)
[2023-05-12] MEDS: CMCS:DAPAGLIFLOZIN 10 MG TAB (NF) PO SCH (16:24)
[2023-05-12 16:27] LABS: Albumin/Globulin Ratio 1.3 (1-3); Globulin 2.3 g/dL (2-4); Total Bilirubin 0.2 mg/dL (0.2-1.0); Total Protein 5.3 g/dL (6.4-8.9)
[2023-05-12 16:40] LABS: ABS Eosinophils 0.3 10^3/uL (0.0-0.5); ABS Lymphocytes 2.4 10^3/uL (1.0-4.8); ABS Monocytes 0.5 10^3/uL (0.0-1.1); ABS Neutrophils 2.4 10^3/uL (1.5-7.6); Hematocrit 30.7 % (38-53); Hemoglobin 10.6 g/dL (13.2-16.3); Lymphocyte % 43.8 %; Mean Corpuscular Hemoglobin 29.2 pg (27-33); Mean Corpuscular Hgb Conc 34.5 g/dL (31-36); Mean Corpuscular Volume 84.9 fL (80-97); Mean Platelet Volume 7.6 fL (7.5-11.2); Nucleated Red Blood Cells % 0.1 %/100WBC (0.0-0.8); Platelet Count 217 10^3/uL (150-450); Red Blood Count 3.62 10^6/uL (4.06-5.63); Red Cell Distribution Width 13.6 % (12-17); White Blood Count 5.6 10^3/uL (3.6-10.2)
[2023-05-12] MEDS: Lidocaine PATCH 5% PATCH TRANSDERM SCH (17:00)
[2023-05-12 17:19] LABS: RBC Morphology Normal (Normal)
[2023-05-12 17:57] LABS: C Reactive Protein 23.07 mg/L (<8.01)
[2023-05-12] MEDS: Insulin GLARGINE 100 un/ml 10 ml VIAL SUBCUT SCH (21:06)
[2023-05-13] MEDS: HYDROmorphone 0.5 MG/0.5 ML SYRINGE IV SLOW PU PRN ×4 (00:02→19:12)
[2023-05-13 06:48] LABS: ABS Eosinophils 0.3 10^3/uL (0.0-0.5); ABS Lymphocytes 2.7 10^3/uL (1.0-4.8); ABS Monocytes 0.6 10^3/uL (0.0-1.1); ABS Neutrophils 2.1 10^3/uL (1.5-7.6); Eosinophil % 4.6 %; Hematocrit 29.9 % (38-53); Hemoglobin 10.2 g/dL (13.2-16.3); Lymphocyte % 47.7 %; Mean Corpuscular Hemoglobin 29.2 pg (27-33); Mean Corpuscular Hgb Conc 34.1 g/dL (31-36); Mean Corpuscular Volume 85.5 fL (80-97); Mean Platelet Volume 7.9 fL (7.5-11.2); Nucleated Red Blood Cells % 0.1 %/100WBC (0.0-0.8); Platelet Count 222 10^3/uL (150-450); Red Cell Distribution Width 13.5 % (12-17); White Blood Count 5.8 10^3/uL (3.6-10.2)
[2023-05-13 07:05] LABS: Calcium 8.9 mg/dL (8.6-10.3); Creatinine, Serum 2.26 mg/dL (0.67-1.17); Potassium 4.8 mmol/L (3.5-5.0); eGFR CKD-EPI 33.8 (>60)
[2023-05-13] MEDS: CMCS:DAPAGLIFLOZIN 10 MG TAB (NF) PO SCH (08:23)
[2023-05-13] MEDS: Aspirin EC 81 mg TAB.EC (enteric coated) PO SCH (08:23)
[2023-05-13] MEDS: Lidocaine PATCH 5% PATCH TRANSDERM SCH (08:25)
[2023-05-13] MEDS: Albuterol HFA INHALER 8 gm MDI INH PRN ×2 (09:05→18:05)
[2023-05-13] MEDS: Polyethylene Glycol 3350 17 GM PACKET PO PRN (10:18)
[2023-05-13] MEDS ORDERED: Furosemide 40 mg/4 ml IV VIAL IV ONE (15:47)
[2023-05-13] MEDS: Enoxaparin 40 MG/0.4 ML SYR SUBCUT SCH (17:15)
[2023-05-13] MEDS: Insulin GLARGINE 100 un/ml 10 ml VIAL SUBCUT SCH (20:48)
[2023-05-13] MEDS ORDERED: HYDROmorphone 0.5 MG/0.5 ML SYRINGE IV SLOW PU PRN (23:00)
[2023-05-14] MEDS: HYDROmorphone 0.5 MG/0.5 ML SYRINGE IV SLOW PU PRN (03:27)
[2023-05-14 07:33] LABS: ABS Basophils 0.1 10^3/uL (0.0-0.1); ABS Eosinophils 0.3 10^3/uL (0.0-0.5); ABS Lymphocytes 2.5 10^3/uL (1.0-4.8); ABS Monocytes 0.7 10^3/uL (0.0-1.1); ABS Neutrophils 2.6 10^3/uL (1.5-7.6); ABS Nucleated RBC 0.01 10^3/ul; Eosinophil % 4.3 %; Hematocrit 29.5 % (38-53); Hemoglobin 10.2 g/dL (13.2-16.3); Lymphocyte % 41.1 %; Mean Corpuscular Hemoglobin 29.4 pg (27-33); Mean Corpuscular Hgb Conc 34.7 g/dL (31-36); Mean Corpuscular Volume 84.7 fL (80-97); Mean Platelet Volume 7.8 fL (7.5-11.2); Nucleated Red Blood Cells % 0.1 %/100WBC (0.0-0.8); Platelet Count 231 10^3/uL (150-450); Red Blood Count 3.48 10^6/uL (4.06-5.63); Red Cell Distribution Width 13.2 % (12-17); White Blood Count 6.1 10^3/uL (3.6-10.2)
[2023-05-14 07:59] LABS: Calcium 8.5 mg/dL (8.6-10.3); Creatinine, Serum 2.24 mg/dL (0.67-1.17); Potassium 4.4 mmol/L (3.5-5.0); eGFR CKD-EPI 34.2 (>60)
[2023-05-14] MEDS: Aspirin EC 81 mg TAB.EC (enteric coated) PO SCH (08:43)
[2023-05-14] MEDS: CMCS:DAPAGLIFLOZIN 10 MG TAB (NF) PO SCH (08:43)
[2023-05-14] MEDS ORDERED: Furosemide 40 mg/4 ml IV VIAL IV ONE (08:56)
[2023-05-14] MEDS: Lidocaine PATCH 5% PATCH TRANSDERM SCH (09:18)
[2023-05-14 10:57] LABS: NT-Pro B-Type Natriuretic Pep 1901 pg/mL (<=87)
[2023-05-14] MEDS: Enoxaparin 40 MG/0.4 ML SYR SUBCUT SCH (16:28)
[2023-05-14] MEDS: Insulin GLARGINE 100 un/ml 10 ml VIAL SUBCUT SCH (22:20)
[2023-05-15 06:25] LABS: ABS Eosinophils 0.3 10^3/uL (0.0-0.5); ABS Lymphocytes 2.6 10^3/uL (1.0-4.8); ABS Monocytes 0.7 10^3/uL (0.0-1.1); ABS Neutrophils 2.9 10^3/uL (1.5-7.6); Eosinophil % 4.1 %; Hematocrit 27.4 % (38-53); Hemoglobin 9.2 g/dL (13.2-16.3); Lymphocyte % 40.3 %; Mean Corpuscular Hemoglobin 28.6 pg (27-33); Mean Corpuscular Hgb Conc 33.7 g/dL (31-36); Mean Corpuscular Volume 84.7 fL (80-97); Mean Platelet Volume 7.6 fL (7.5-11.2); Platelet Count 235 10^3/uL (150-450); Red Blood Count 3.24 10^6/uL (4.06-5.63); Red Cell Distribution Width 13.3 % (12-17); White Blood Count 6.6 10^3/uL (3.6-10.2)
[2023-05-15 06:31] LABS: Calcium 8.4 mg/dL (8.6-10.3); Creatinine, Serum 2.25 mg/dL (0.67-1.17); Magnesium 1.9 mg/dL (1.9-2.7); Potassium 4.3 mmol/L (3.5-5.0)
[2023-05-15] MEDS: Lidocaine PATCH 5% PATCH TRANSDERM SCH (07:45)
[2023-05-15] MEDS: CMCS:DAPAGLIFLOZIN 10 MG TAB (NF) PO SCH (09:06)
[2023-05-15] MEDS: Aspirin EC 81 mg TAB.EC (enteric coated) PO SCH (09:06)
[2023-05-15] MEDS ORDERED: Sulfur Hexaflouride MICROSPHR 25 MG VIAL ONE (10:13)
[2023-05-15] MEDS ORDERED: Midazolam 10 mg/10 ml VIAL 1 mg/ml 10 ml VIAL (10 mg) ONE (16:09)
[2023-05-15] MEDS ORDERED: fentaNYL 100 mcg/2 ml 50 MCG/ML VIAL ONE (16:09)
[2023-05-15] MEDS: Enoxaparin 40 MG/0.4 ML SYR SUBCUT SCH (18:16)
[2023-05-15] MEDS: Insulin GLARGINE 100 un/ml 10 ml VIAL SUBCUT SCH (21:03)
[2023-05-15] MEDS: Polyethylene Glycol 3350 17 GM PACKET PO SCH (21:09)
[2023-05-16 05:54] LABS: ABS Eosinophils 0.2 10^3/uL (0.0-0.5); ABS Lymphocytes 2.2 10^3/uL (1.0-4.8); ABS Monocytes 0.7 10^3/uL (0.0-1.1); ABS Neutrophils 2.9 10^3/uL (1.5-7.6); Eosinophil % 3.8 %; Hematocrit 27.3 % (38-53); Hemoglobin 9.4 g/dL (13.2-16.3); Lymphocyte % 36.5 %; Mean Corpuscular Hemoglobin 28.9 pg (27-33); Mean Corpuscular Hgb Conc 34.3 g/dL (31-36); Mean Corpuscular Volume 84.3 fL (80-97); Mean Platelet Volume 7.2 fL (7.5-11.2); Nucleated Red Blood Cells % 0.1 %/100WBC (0.0-0.8); Platelet Count 258 10^3/uL (150-450); Red Blood Count 3.24 10^6/uL (4.06-5.63); Red Cell Distribution Width 13.4 % (12-17); White Blood Count 6.1 10^3/uL (3.6-10.2)
[2023-05-16 06:57] LABS: Calcium 8.3 mg/dL (8.6-10.3); Creatinine, Serum 2.24 mg/dL (0.67-1.17); Potassium 3.9 mmol/L (3.5-5.0); eGFR CKD-EPI 34.2 (>60)
[2023-05-16] MEDS ORDERED: Regadenoson 0.4 MG/5 ML SYRINGE ONE (08:48)
[2023-05-16] MEDS ORDERED: Aminophylline 25 MG/ML VIAL ONE (08:48)
[2023-05-16] MEDS: Polyethylene Glycol 3350 17 GM PACKET PO SCH ×3 (09:23→20:32)
[2023-05-16] MEDS: CMCS:DAPAGLIFLOZIN 10 MG TAB (NF) PO SCH (09:23)
[2023-05-16] MEDS: Aspirin EC 81 mg TAB.EC (enteric coated) PO SCH (09:23)
[2023-05-16] MEDS: Lidocaine PATCH 5% PATCH TRANSDERM SCH (09:25)
[2023-05-16 10:01] LABS: Haptoglobin 226 mg/dL (30 - 200)
[2023-05-16] MEDS: Enoxaparin 40 MG/0.4 ML SYR SUBCUT SCH (17:22)
[2023-05-16] MEDS: Insulin GLARGINE 100 un/ml 10 ml VIAL SUBCUT SCH (20:29)
[2023-05-17] MEDS: Lidocaine PATCH 5% PATCH TRANSDERM SCH (09:21)
[2023-05-17] MEDS: CMCS:DAPAGLIFLOZIN 10 MG TAB (NF) PO SCH (09:22)
[2023-05-17] MEDS: Aspirin EC 81 mg TAB.EC (enteric coated) PO SCH (09:23)
[2023-05-17] MEDS: Polyethylene Glycol 3350 17 GM PACKET PO SCH ×2 (09:24→21:52)
[2023-05-17] MEDS: Enoxaparin 40 MG/0.4 ML SYR SUBCUT SCH (17:15)
[2023-05-17] MEDS: Insulin GLARGINE 100 un/ml 10 ml VIAL SUBCUT SCH (21:52)
[2023-05-18 06:18] LABS: ABS Eosinophils 0.2 10^3/uL (0.0-0.5); ABS Lymphocytes 2.2 10^3/uL (1.0-4.8); ABS Monocytes 0.7 10^3/uL (0.0-1.1); ABS Neutrophils 2.2 10^3/uL (1.5-7.6); ABS Nucleated RBC 0.01 10^3/ul; Hemoglobin 10.5 g/dL (13.2-16.3); Lymphocyte % 40.7 %; Mean Corpuscular Hemoglobin 29.7 pg (27-33); Mean Corpuscular Hgb Conc 34.8 g/dL (31-36); Mean Corpuscular Volume 85.2 fL (80-97); Mean Platelet Volume 7.5 fL (7.5-11.2); Nucleated Red Blood Cells % 0.2 %/100WBC (0.0-0.8); Platelet Count 323 10^3/uL (150-450); Red Blood Count 3.53 10^6/uL (4.06-5.63); Red Cell Distribution Width 13.7 % (12-17); White Blood Count 5.3 10^3/uL (3.6-10.2)
[2023-05-18 06:46] LABS: Calcium 8.8 mg/dL (8.6-10.3); Creatinine, Serum 2.58 mg/dL (0.67-1.17); Potassium 4.3 mmol/L (3.5-5.0); eGFR CKD-EPI 28.9 (>60)
[2023-05-18 09:37] VITALS: BP 143/71
[2023-05-18] MEDS: Polyethylene Glycol 3350 17 GM PACKET PO SCH (09:38)
[2023-05-18] MEDS: Aspirin EC 81 mg TAB.EC (enteric coated) PO SCH (09:38)
[2023-05-18] MEDS: Lidocaine PATCH 5% PATCH TRANSDERM SCH (09:42)
== END 2023-05-18 14:50 | disposition home or self-care (01) | DRG 420 ==
LOC: ED 20:27 → EDHOLD 05-09 00:39 → SUATTDRO 05-09 00:39 → MEDTELE 05-10 03:28
PROVIDERS: ADMIT Internal Medicine Pulmonary Disease; ATTEND Student in an Organized Health Care Education/Training Program

== ENCOUNTER 2023-07-01 11:51 | Inpatient (IN) ==
[2023-07-01 12:54] LABS: ABS Basophils 0.1 10^3/uL (0.0-0.1); ABS Eosinophils 0.3 10^3/uL (0.0-0.5); ABS Lymphocytes 2.6 10^3/uL (1.0-4.8); ABS Monocytes 0.7 10^3/uL (0.0-1.1); ABS Neutrophils 4.4 10^3/uL (1.5-7.6); Eosinophil % 3.5 %; Hematocrit 29.9 % (38-53); Hemoglobin 10.5 g/dL (13.2-16.3); Lymphocyte % 32.1 %; Mean Corpuscular Hemoglobin 29.7 pg (27-33); Mean Corpuscular Hgb Conc 35.1 g/dL (31-36); Mean Corpuscular Volume 84.6 fL (80-97); Mean Platelet Volume 7.7 fL (7.5-11.2); Platelet Count 299 10^3/uL (150-450); Red Blood Count 3.54 10^6/uL (4.06-5.63); Red Cell Distribution Width 15.2 % (12-17); White Blood Count 8.1 10^3/uL (3.6-10.2)
[2023-07-01 13:03] LABS: Urine Appearance Clear; Urine Bilirubin Negative (Negative); Urine Blood Negative (Negative); Urine Color Colorless; Urine Glucose 4+ (>=1000 mg/dL) (Negative); Urine Ketones Negative (Negative); Urine Nitrite Negative (Negative); Urine Protein Trace (Negative); Urine Urobilinogen Negative (Negative)
[2023-07-01 13:03] LABS: INR 1.12 (0.83-1.13)
[2023-07-01 13:13] LABS: Albumin 3.9 g/dL (3.2-5.2); Albumin/Globulin Ratio 1.3 (1-3); C Reactive Protein 15.43 mg/L (<8.01); Calcium 9.2 mg/dL (8.6-10.3); Creatinine, Serum 2.15 mg/dL (0.67-1.17); Globulin 3.1 g/dL (2-4); Magnesium 2.6 mg/dL (1.9-2.7); Phosphorus 4.6 mg/dL (2.5-5.0); Total Bilirubin 0.3 mg/dL (0.2-1.0); eGFR CKD-EPI 35.9 (>60)
[2023-07-01 14:47] LABS: High Sensitivity Troponin 1 Hr 10 pg/mL (<20)
[2023-07-01] MEDS ORDERED: Polyethylene Glycol 3350 17 GM PACKET PO PRN (15:45)
[2023-07-01] MEDS ORDERED: Albuterol HFA INHALER 8 gm MDI INH PRN (15:45)
[2023-07-01] MEDS ORDERED: Dextrose 50% Syringe 50 ml 25 GM/50 ML SYRINGE IV PUSH PRN (15:47)
[2023-07-01 18:22] LABS: Folate 14.72 ng/mL (5.90-24.80)
[2023-07-01 18:23] LABS: Vitamin B12 > 1450 pg/mL (180-914)
[2023-07-01] MEDS: Insulin GLARGINE 100 un/ml 10 ml VIAL SUBCUT SCH (22:04)
[2023-07-02] MEDS: Saline NASAL SPRAY 0.65% BTL BOTH NARES PRN (02:07)
[2023-07-02 06:50] LABS: ABS Basophils 0.1 10^3/uL (0.0-0.1); ABS Eosinophils 0.3 10^3/uL (0.0-0.5); ABS Lymphocytes 2.6 10^3/uL (1.0-4.8); ABS Monocytes 0.6 10^3/uL (0.0-1.1); ABS Neutrophils 3.5 10^3/uL (1.5-7.6); Hematocrit 29.3 % (38-53); Hemoglobin 10.1 g/dL (13.2-16.3); Lymphocyte % 37.1 %; Mean Corpuscular Hemoglobin 29.3 pg (27-33); Mean Corpuscular Hgb Conc 34.4 g/dL (31-36); Mean Corpuscular Volume 85.3 fL (80-97); Mean Platelet Volume 7.5 fL (7.5-11.2); Platelet Count 296 10^3/uL (150-450); Red Blood Count 3.43 10^6/uL (4.06-5.63); Red Cell Distribution Width 15.2 % (12-17); White Blood Count 7.1 10^3/uL (3.6-10.2)
[2023-07-02 07:03] LABS: Calcium 9.4 mg/dL (8.6-10.3); Creatinine, Serum 2.13 mg/dL (0.67-1.17); Potassium 3.7 mmol/L (3.5-5.0); eGFR CKD-EPI 36.3 (>60)
[2023-07-02] MEDS: Aspirin EC 81 mg TAB.EC (enteric coated) PO SCH (09:44)
[2023-07-02] MEDS: CMCS: DAPAGLIFLOZIN 10 MG TAB (NF) PO SCH (09:53)
[2023-07-02] MEDS: HYDROmorphone 0.5 MG/0.5 ML SYRINGE IV SLOW PU PRN (12:21)
[2023-07-02] MEDS ORDERED: HYDROmorphone 1 MG/1 ML SYRINGE IV SLOW PU PRN (18:07)
[2023-07-02] MEDS: HYDROmorphone 0.5 MG/0.5 ML SYRINGE IV SLOW PU ONE (18:39)
[2023-07-02] MEDS: HYDROmorphone 1 MG/1 ML SYRINGE IV SLOW PU PRN (22:46)
[2023-07-03 05:27] LABS: ABS Basophils 0.1 10^3/uL (0.0-0.1); ABS Eosinophils 0.2 10^3/uL (0.0-0.5); ABS Monocytes 0.6 10^3/uL (0.0-1.1); ABS Neutrophils 5.4 10^3/uL (1.5-7.6); Eosinophil % 2.6 %; Hematocrit 32.1 % (38-53); Hemoglobin 11.1 g/dL (13.2-16.3); Lymphocyte % 31.7 %; Mean Corpuscular Hemoglobin 28.9 pg (27-33); Mean Corpuscular Hgb Conc 34.5 g/dL (31-36); Mean Corpuscular Volume 83.7 fL (80-97); Mean Platelet Volume 7.3 fL (7.5-11.2); Platelet Count 308 10^3/uL (150-450); Red Blood Count 3.84 10^6/uL (4.06-5.63); Red Cell Distribution Width 15.9 % (12-17); White Blood Count 9.4 10^3/uL (3.6-10.2)
[2023-07-03 05:39] LABS: Calcium 9.8 mg/dL (8.6-10.3); Creatinine, Serum 2.18 mg/dL (0.67-1.17); Potassium 4.4 mmol/L (3.5-5.0); eGFR CKD-EPI 35.3 (>60)
[2023-07-03 05:45] LABS: Magnesium 2.7 mg/dL (1.9-2.7)
[2023-07-03] MEDS: Gadobenate (CONTRAST) 529 MG/ML 10 ML SDV IV ONE (10:24)
[2023-07-03] MEDS: Lidocaine PATCH 5% PATCH TRANSDERM SCH (10:47)
[2023-07-03] MEDS ORDERED: Psyllium PAK PO PRN (17:36)
[2023-07-04] MEDS: Insulin GLARGINE 100 un/ml 10 ml VIAL SUBCUT SCH (23:10)
[2023-07-05] MEDS ORDERED: Dextrose 50% Syringe 50 ml 25 GM/50 ML SYRINGE IV PUSH PRN (01:29)
[2023-07-05 06:08] LABS: ABS Lymphocytes 1.2 10^3/uL (1.0-4.8); ABS Monocytes 0.5 10^3/uL (0.0-1.1); ABS Neutrophils 15.7 10^3/uL (1.5-7.6); Hematocrit 27.4 % (38-53); Hemoglobin 9.2 g/dL (13.2-16.3); Lymphocyte % 6.9 %; Mean Corpuscular Hemoglobin 28.7 pg (27-33); Mean Corpuscular Hgb Conc 33.6 g/dL (31-36); Mean Corpuscular Volume 85.4 fL (80-97); Mean Platelet Volume 7.7 fL (7.5-11.2); Platelet Count 292 10^3/uL (150-450); Red Blood Count 3.21 10^6/uL (4.06-5.63); Red Cell Distribution Width 14.7 % (12-17); White Blood Count 17.4 10^3/uL (3.6-10.2)
[2023-07-05 06:25] LABS: Calcium 9.4 mg/dL (8.6-10.3); Creatinine, Serum 2.39 mg/dL (0.67-1.17); HDL Cholesterol 33.4 mg/dL; Magnesium 2.7 mg/dL (1.9-2.7); Potassium 4.1 mmol/L (3.5-5.0); eGFR CKD-EPI 31.6 (>60)
[2023-07-05] MEDS ORDERED: Insulin GLARGINE 100 un/ml 10 ml VIAL SUBCUT SCH (09:00)
[2023-07-05] MEDS: Insulin GLARGINE 100 un/ml 10 ml VIAL SUBCUT SCH (09:45)
[2023-07-05 14:09] VITALS: BP 161/73
== END 2023-07-05 16:20 | disposition home or self-care (01) | DRG 45 ==
LOC: ED 11:51 → EDHOLD 11:51 → SUATTDRO 15:02 → MED 16:13
PROVIDERS: ADMIT Hospitalist; ATTEND Internal Medicine